=== PATIENT | female | born 1995 | race Hispanic/Latino ===

== ENCOUNTER 2017-05-11 09:06 | Emergency (ER) | payer BC, OTHER ==
[2017-05-11 09:26] VITALS: RESP 18
--- NOTE | 2017-05-11 09:28 | ED PDOC ---
Arrival/HPI - General Time Seen by Provider: 05/11/17 09:16 Historian: Patient - History of Present Illness Narrative History of Present Illness (Text): 05/11/17 09:24 21yo female with PMHx of Celiac disease present with sharp constant epigastric abdominal pain with associated nausea that started this morning. She notes that she had similar pain last year September and was diagnosed with Celiac disease by her PMD. +Flatulence and dyspepsia. Denies fever, chills, hematuria, urinary symptoms, diarrhea, constipation, hematemesis, hematochezia, melena. Past Medical History - Provider Review Nursing Documentation Reviewed: Yes Family/Social History - Physician Review Nursing Documentation Reviewed: Yes Family/Social History: Unknown Family HX Allergies/Home Meds Allergies/Adverse Reactions: Allergies No Known Allergies Allergy (Verified 05/11/17 09:26) Home Medications: Home Meds Medication Instructions Recorded Confirmed Norethindrone-E.estradiol-Iron 1 tab PO DAILY 05/11/17 05/11/17 [Mibelas 24 Fe Chewable Tablet] Review of Systems - Physician Review All systems were reviewed & negative as marked: Yes - Review of Systems Constitutional: Normal Eyes: Normal ENT: Normal Respiratory: Normal Cardiovascular: Normal Gastrointestinal: Abdominal Pain, Nausea. absent: Constipation, Diarrhea, Vomiting, Hematochezia, Hematemesis Genitourinary Female: Normal Musculoskeletal: Normal Skin: Normal Neurological: Normal Endocrine: Normal Hemo/Lymphatic: Normal Psychiatric: Normal Physical Exam Vital Signs Reviewed: Yes Vital Signs Temp Pulse Resp BP Pulse Ox 05/11/17 11:35 76 18 147/68 99 05/11/17 11:11 97.9 F 79 18 138/68 98 05/11/17 09:23 97.3 F L 85 18 143/72 100 Temperature: Afebrile Blood Pressure: Normal Pulse: Regular Respiratory Rate: Normal Appearance: Positive for: Well-Appearing, Non-Toxic, Comfortable Pain Distress: None Mental Status: Positive for: Alert and Oriented X 3 - Systems Exam Head: Present: Atraumatic, Normocephalic Pupils: Present: PERRL Extroacular Muscles: Present: EOMI Conjunctiva: Present: Normal Mouth: Present: Moist Mucous Membranes Neck: Present: Normal Range of Motion Respiratory/Chest: Present: Clear to Auscultation, Good Air Exchange. No: Respiratory Distress, Accessory Muscle Use Cardiovascular: Present: Regular Rate and Rhythm, Normal S1, S2. No: Murmurs Abdomen: Present: Normal Bowel Sounds. No: Tenderness, Distention, Peritoneal Signs, Rebound, Guarding, McBurney's Point Tender, Rovsing's Sign Present Back: Present: Normal Inspection Upper Extremity: Present: Normal Inspection. No: Cyanosis, Edema Lower Extremity: Present: Normal Inspection. No: Edema Neurological: Present: GCS=15, CN II-XII Intact, Speech Normal Skin: Present: Warm, Dry, Normal Color. No: Rashes Psychiatric: Present: Alert, Oriented x 3, Normal Insight, Normal Concentration Medical Decision Making ED Course and Treatment: 05/11/17 10:38 21yo female in ED for epigastric pain.Lab was ordered and medications was given. On re evaluation pt was laughing states her pain resolved with medication. Her lab was reviewed with very mild WBC elevation. UA still pending. . 05/11/17 11:39 UA was noted with leukocyte, but no WBC. Pt also don't have UTI symptoms. Abx will not be given at this time. Result was DW the pt. She was DC home with Pepcid for gastritis and referred to her PMD. TRT ED for any new or worsening symptoms - Lab Interpretations Lab Results: 05/11/17 08:12 05/11/17 08:12 Lab Results 05/11/17 10:45: Urine Color Straw, Urine Appearance Clear, Urine pH 6.0, Ur Specific [place] <= 1.005, Urine Protein Negative, Urine Glucose (UA) Negative, Urine Ketones Negative, Urine Blood Small H, Urine Nitrate Negative, Urine Bilirubin Negative, Urine Urobilinogen 0.2, Ur Leukocyte Esterase Small H, Urine RBC 0 - 2, Urine WBC 2 - 5, Ur Epithelial Cells 1 - 3, Urine Bacteria Mod 05/11/17 08:12: Sodium 134, Potassium 3.6, Chloride 105, Carbon Dioxide 18 L, Anion Gap 15, BUN 12, Creatinine 0.8, Est GFR ( Amer) > 60, Est GFR (Non- Af Amer) > 60, Random Glucose 98, Calcium 9.2, Total Bilirubin 0.6, AST 30, ALT 29, Alkaline Phosphatase 77, Total Protein 7.5, Albumin 4.2, Globulin 3.3, Albumin/Globulin Ratio 1.3, Lipase 49 07/05/17 08:12: PT 10.0, INR 0.93, APTT 28.7 05/11/17 08:12: WBC 11.1 H, RBC 4.58, Hgb 13.6, Hct 40.6, MCV 88.6, MCH 29.7, MCHC 33.5, RDW 13.1, Plt Count 354, MPV 10.9, Gran % 72.8 H, Lymph % (Auto) 20.5 L, [place] % (Auto) 5.9, Eos % (Auto) 0.7 L, Baso % (Auto) 0.1, Gran # 8.04 H , Lymph # 2.3, [place] # 0.7 H, Eos # 0.1, Baso # 0.01 - Medication Orders Current Medication Orders: Discontinued Medications Famotidine (Pepcid) 20 mg IVP STAT STA Stop: 05/11/17 09:31 Last Admin: 05/11/17 09:41 Dose: 20 mg Sodium Chloride (Sodium Chloride 0.9%) 1,000 mls @ 1,000 mls/hr IV .Q1H STA Stop: 05/11/17 10:29 Last Admin: 05/11/17 09:41 Dose: 1,000 mls/hr Ketorolac Tromethamine (Toradol) 30 mg IVP STAT STA Stop: 05/11/17 09:31 Last Admin: 05/11/17 09:41 Dose: 30 mg Ondansetron HCl (Zofran Inj) 4 mg IVP STAT STA Stop: 05/11/17 09:31 Last Admin: 05/11/17 09:41 Dose: 4 mg Disposition/Present on Arrival - Present on Arrival Any Indicators Present on Arrival: No History of DVT/PE: No History of Uncontrolled Diabetes: No Urinary Catheter: No History of Decub. Ulcer: No History Surgical Site Infection Following: None - Disposition Have Diagnosis and Disposition been Completed?: Yes Diagnosis: Abdominal pain Disposition: HOME/ ROUTINE Disposition Time: 11:30 Patient Plan: Discharge Condition: IMPROVED Discharge Instructions (ExitCare): Abdominal Pain (ED) Additional Instructions: Follow up with your Private doctor Drink plenty of fluid Return to ED for any new or worsening symptoms Prescriptions: Famotidine [Pepcid] 40 mg PO DAILY #15 tab Referrals: Stalin Hanson MD [Primary Care Provider] - Follow up with primary
[2017-05-11] MEDS ORDERED: Sodium Chloride 0.9% 1,000 ML IV STA (09:30)
[2017-05-11 09:51] LABS: BASO # 0.01 K/mm3 (0.0-2.0); BASO % 0.1 % (0.0-3.0); EOS # 0.1 (0.0-0.7); EOS % 0.7 % (1.5-5.0); GRAN # 8.04 (1.4-6.5); GRAN % 72.8 % (50.0-68.0); HEMOGLOBIN 13.6 gm/dL (12.0-16.0); LYMPH # 2.3 (1.2-3.4); LYMPH % 20.5 % (22.0-35.0); MEAN CELL VOLUME 88.6 fL (80.0-105.0); MEAN CORPUSCULAR HEMOGLOBIN 29.7 pg (25.0-35.0); MEAN CORPUSCULAR HGB CONC 33.5 g/dl (31.0-37.0); MEAN PLATELET VOLUME 10.9 fl (7.0-11.0); MONO # 0.7 (0.1-0.6); MONO % 5.9 % (1.0-6.0); PLATELET COUNT 354 10^3/uL (120.0-450.0); RBC 4.58 10^6/uL (3.5-6.1); RED CELL DISTRIBUTION WIDTH 13.1 % (11.5-14.5); WHITE BLOOD COUNT 11.1 10^3/ul (4.5-11.0)
[2017-05-11 09:58] LABS: ALB/GLOB RATIO 1.3 (1.1-1.8); ALBUMIN 4.2 g/dL (3.0-4.8); ALT/SGPT 29 U/L (7-56); AST/SGOT 30 U/L (15-39); BLOOD UREA NITROGEN 12 mg/dL (7-21); CALCIUM 9.2 mg/dL (8.4-10.5); GFR AFRICAN-AMERICAN > 60; GFR NON-AFRICAN AMERICAN > 60; LIPASE 49 U/L (23-300)
[2017-05-11 10:00] LABS: INR 0.93 (0.93-1.08); PARTIAL THROMBOPLASTIN TIME 28.7 Seconds (23.7-30.8)
[2017-05-11 11:05] LABS: URINE BILIRUBIN NEGATIVE (NEGATIVE); URINE BLOOD SMALL (NEGATIVE); URINE GLUCOSE (UA) NEGATIVE (NEGATIVE); URINE LEUKOCYTE ESTERASE SMALL Leu/uL (NEGATIVE); URINE NITRATE NEGATIVE (NEGATIVE); URINE PROTEIN NEGATIVE mg/dL (<30 mg/dL); URINE UROBILINOGEN 0.2 E.U./dL (<1 E.U./dL)
[2017-05-11 11:11] LABS: URINE APPEARANCE CLEAR (CLEAR); URINE COLOR STRAW (YELLOW)
[2017-05-11 11:12] VITALS: TEMP 97.9
[2017-05-11 11:31] LABS: URINE BACTERIA MOD (NEG); URINE RBC 0 - 2 /hpf (0-2)
[2017-05-11 11:36] VITALS: BP 147/68; PULSE 76; O2SAT 99
== END 2017-05-11 11:38 | disposition home or self-care (01) ==
LOC: ED 09:06 → MERGE 09:06 → ED 11:38
DX: R10.9 Unspecified abdominal pain (principal)
CPT/HCPCS: 80053; 81001; 83690; 85025; 85610; 85730; 87086; 96374; 96375; 99283; J1885; J2405; J7040